=== PATIENT | female | born 1955 | race Hispanic/Latino ===

== ENCOUNTER → 2018-07-13 | Outpatient (CLI) | payer MEDICARE ==
[~2018-07-13] MED LIST: AMLODIPINE BESYLATE; ASPIRIN; ATORVASTATIN; CARBAMAZEPINE200 MG PO; CENTRUM SILVER1 EAC3; EVISTA60 MG PO; HYDROCODON-ACE1 EA12; HYDROXYCHLOROQ200 MG; LAMOTRIGINE100 MG PO; NORTRIPTYLINE H75 MG; PANTOPRAZOLE SO40 MG PO; PHENYTOIN SODI100 MG PO; SERTRALINE HCL50 MG PO
--- NOTE | 2018-07-20 04:32 | Polysomnography ---
DATE OF STUDY: 07/13/2018 REFERRING PHYSICIAN: Gavin Alvarado MD DIAGNOSTIC POLYSOMNOGRAPHY INTERPRETATION IMPRESSION: 1. Mild obstructive sleep apnea with arterial oxygen desaturations with a respiratory distress index (RDI) of 10.6. 2. Moderate snoring was noted. 3. Periodic limb movements were seen. RECOMMENDATIONS: 1. Initiate titration for continuous positive airway pressure (CPAP). 2. Consider conservative approach of an oral appliance or positional device. 3. ENT evaluation to consider surgical options to correct sleep-disordered breathing. 4. Avoid consumption of alcohol or sedatives before bedtime. 5. Avoid caffeine and exercise within 3 to 4 hours prior to bedtime. 6. Weight reduction to ideal body weight. 7. Advise the patient that excessive daytime sleepiness could pose a danger to the patient and others while driving or operating heavy machinery, and to use caution until symptoms are treated and improved. 8. The patient to follow up with physician to discuss results of study. MD Suha NovaKY/BRANDINL /[id number] MTDD
== END ==
LOC: SLEEP 18:56
PROVIDERS: ATTEND Psychiatry & Neurology Neurology
DX: G47.33 Obstructive sleep apnea (adult) (pediatric) (principal); G40.409 Other generalized epilepsy and epileptic syndromes, not intractable, without status epilepticus
CPT/HCPCS: 95810

== ENCOUNTER 2023-12-15 05:45 | Observation (INO) | payer MEDICARE ==
[2023-12-14 10:05] LABS: BASOPHILS % 0.4 % (0.0-1.0); EOSINOPHILS # (AUTO) 0.2 (0.0-0.4); EOSINOPHILS % 2.1 % (0.0-6.0); HEMATOCRIT 43.5 % (34.2-44.1); HEMOGLOBIN 13.6 g/dL (12.0-16.0); LYMPHOCYTES # (AUTO) 0.9 (1.0-3.2); LYMPHOCYTES % 12.4 % (18.0-39.1); MEAN CORPUSCULAR HEMOGLOBIN 29.6 pg (28-32); MEAN CORPUSCULAR HGB CONC 31.3 g/dL (31-35); MEAN CORPUSCULAR VOLUME 94.6 fL (81-99); MONOCYTES # (AUTO) 1.1 (0.2-0.8); MONOCYTES % 14.6 % (4.4-11.3); NEUTROPHILS # (AUTO) 5.3 (2.1-6.9); NEUTROPHILS % 70.2 % (38.7-80.0); PLATELET COUNT 245 x10e3/uL (140-360); RED CELL DISTRIBUTION WIDTH 14.6 % (11.7-14.4); WHITE BLOOD COUNT 7.56 x10e3/uL (4.8-10.8)
[~2023-12-15 05:45] MED LIST changes: +LISINOPRIL10 MG PO
[2023-12-15] MEDS: CEFAZOLIN SODIUM 2 GM ONE (06:48)
[2023-12-15] MEDS: LACTATED RINGER'S 1,000 ML ONE (06:48)
[2023-12-15] MEDS: DEXAMETHASONE SOD PHOS 10 MG/1 ML VIAL ONE (06:50)
[2023-12-15] MEDS: GABAPENTIN 300 MG CAP ONE (06:50)
[2023-12-15] MEDS: CELECOXIB 200 MG CAP ONE (06:51)
[2023-12-15] MEDS ORDERED: Vancomycin IV 500 MG ONE (07:12)
[2023-12-15] MEDS ORDERED: SODIUM CHLORIDE 0.9% 500ML 500 ML ONE (07:12)
[2023-12-15] MEDS ORDERED: TRANEXAMIC ACID 20 ML ONE (07:12)
[2023-12-15] MEDS ORDERED: KETAMINE HCL INJ 50 MG/ML 10 ML VIAL ONE (08:41)
[2023-12-15] MEDS ORDERED: DOCUSATE SODIUM 100 MG CAP PO PRN (11:00)
[2023-12-15] MEDS ORDERED: HYDROCODONE/APAP 5MG-325MG TAB PO PRN (11:00)
[2023-12-15] MEDS ORDERED: ONDANSETRON HCL INJ 2MG/ML 2ML 2 MG/ML VIAL IV PRN (11:00)
[2023-12-15] MEDS ORDERED: DIPHENHYDRAMINE HCL INJ 50 MG/ML VIAL IV PRN (11:00)
[2023-12-15] MEDS ORDERED: ASPIRIN81 MG PO (12:25)
[2023-12-15] MEDS ORDERED: SEVOFLURANE INHAL SOLN 250 ML PEN BTL ONE (12:40)
[2023-12-15] MEDS ORDERED: ACETAMINOPHEN 1000 MG/100 ML IV ONE (12:40)
[2023-12-15] MEDS ORDERED: LIDOCAINE HCL 2% LOCAL INJ 5 ML SDV VIAL INJ ONE (12:40)
[2023-12-15] MEDS ORDERED: TRANEXAMIC ACID 1,000 MG/10 ML ML ONE (12:40)
[2023-12-15] MEDS ORDERED: ROCURONIUM BROMIDE 10 MG/ML 5ML VIAL IV ONE (12:40)
[2023-12-15] MEDS ORDERED: ONDANSETRON HCL INJ 2MG/ML 2ML 2 MG/ML VIAL ONE (12:40)
[2023-12-15] MEDS ORDERED: DEXAMETHASONE SOD PHOS INJ 4 MG/ML SDV ONE (12:40)
[2023-12-15] MEDS ORDERED: PROPOFOL IV EMULSION 10 MG/ML 20 ML VIAL ONE (12:40)
[2023-12-15] MEDS ORDERED: FENTANYL CITRATE/PF 100MCG/2 ML INJ ONE (12:53)
[2023-12-15] MEDS ORDERED: MIDAZOLAM HCL 2 MG/2 ML VIAL ONE (12:53)
[2023-12-15 16:25] VITALS: BP 112/58; PULSE 71; RESP 16; TEMP 97.1; O2SAT 95
[2023-12-15] MEDS: ROPIVACAINE 246.25 MG, EPINEPHRINE HCL 1:1000 1ML 0.5 MG, CLONIDINE HCL 0.08 MG, KETORO... INJ ONE (17:12)
[2023-12-15 17:47] VITALS: BP 117/52; PULSE 73; RESP 18; TEMP 98.1; O2SAT 96
[2023-12-15 17:49] VITALS: BP 117/52; PULSE 73; RESP 18; TEMP 98.1; O2SAT 96
[2023-12-15] MEDS: SODIUM CHLORIDE 0.9% 1000ML 1,000 ML IV SCH (17:51)
[2023-12-15] MEDS: CELECOXIB 200 MG CAP PO SCH (17:51)
[2023-12-15 20:00] VITALS: BP 122/64; PULSE 75; RESP 18; TEMP 97.9; O2SAT 98
[2023-12-15 20:27] VITALS: PULSE 73; RESP 16; O2SAT 97
[2023-12-15] MEDS: ASPIRIN 325 MG TAB PO SCH (20:32)
[2023-12-15 21:00] VITALS: BP 123/64; PULSE 75; RESP 18; TEMP 97.9; O2SAT 100
[2023-12-16] VITALS (9 sets, daily range): BP systolic 119–140; BP diastolic 57–79; PULSE 61–81; RESP 18–20; TEMP 97.5–98.6; O2SAT 90–99
[2023-12-16 06:02] LABS: HEMATOCRIT 37.4 % (34.2-44.1); HEMOGLOBIN 11.9 g/dL (12.0-16.0)
[2023-12-16] MEDS: LISINOPRIL 20 MG TAB PO SCH (10:18)
[2023-12-16] MEDS: ASPIRIN 81 MG CHEW TAB PO SCH (10:19)
[2023-12-16] MEDS: PANTOPRAZOLE SOD 40 MG TABEC PO SCH (10:19)
[2023-12-16] MEDS: HYDROCODONE/APAP 7.5MG-325MG 1 EA TAB PO PRN (10:19)
[2023-12-16] MEDS: HYDROXYCHLOROQUINE SULFATE 200 MG TAB PO SCH (10:20)
[2023-12-16] MEDS ORDERED: ACETAMINOPHEN 1000 MG/100 ML IV PRN (11:00)
[2023-12-16] MEDS: RALOXIFENE HCL 60 MG TAB PO SCH (11:24)
[2023-12-16] MEDS: LAMOTRIGINE 100 MG TAB PO SCH (11:24)
[2023-12-17] VITALS: BP 117/61; PULSE 69; RESP 20; TEMP 98; O2SAT 100
[2023-12-17 02:11] VITALS: PULSE 72; RESP 18; O2SAT 96
[2023-12-17 05:38] VITALS: BP 111/56; PULSE 72; RESP 18; TEMP 97.7; O2SAT 100
[2023-12-17 06:02] LABS: HEMOGLOBIN 11.5 g/dL (12.0-16.0)
[2023-12-17 07:44] VITALS: PULSE 76; RESP 18; O2SAT 98
[2023-12-17 08:00] VITALS: BP 119/70; PULSE 71; RESP 20; TEMP 97.9; O2SAT 100
[2023-12-17 09:06] VITALS: BP 111/56; PULSE 76; RESP 18; TEMP 97.7; O2SAT 98
[2023-12-17] MEDS ORDERED: ONDANSETRON HCL 4 MG ORAL DISINTEGRATING TAB PO PRN (10:00)
== END 2023-12-17 10:30 | disposition home or self-care (01) ==
LOC: OR 05:45 → PACU V 10:57 → MED/SURG2 16:21
PROVIDERS: ADMIT Specialist; ATTEND Specialist
DX: M17.0 Bilateral primary osteoarthritis of knee (principal); I10 Essential (primary) hypertension; E78.5 Hyperlipidemia, unspecified; M81.0 Age-related osteoporosis without current pathological fracture
CPT/HCPCS: 27447; 36415 ×3; 73560; 85014 ×2; 85018 ×2; 85025; 86850; 86900; 94799 ×3; 97110 ×2; 97116 ×2; 97161; 97530 ×3; 99252; C1713 ×2; C1776 ×3; G0378 ×3; J0131; J0171; J0690 ×2; J1100 ×2; J1885; J2003; J2250; J2405; J2704; J2795; J3010; J3370; J7030 ×2; J7040; J7121; S0164 ×2